=== PATIENT | female | born 1995 | race Two or more races ===

== ENCOUNTER 2022-03-09 11:49 | Emergency (ER) | payer OTHER ==
[~2022-03-09] VITALS: Ht 152.4 cm; Wt 114.8 kg
== END 2022-03-09 16:07 | disposition home or self-care (01) ==
LOC: ER 11:49
DX: K29.70 Gastritis, unspecified, without bleeding (principal); R53.83 Other fatigue; Z88.6 Allergy status to analgesic agent

== ENCOUNTER 2022-06-26 | Emergency (ER) | payer OTHER ==
[~2022-06-26] VITALS: Ht 152.4 cm; Wt 118.4 kg
[2022-06-26] MEDS ORDERED: BACTRIM DS TAB1 EACH PO (03:44)
== END 2022-06-26 03:50 | disposition home or self-care (01) ==
LOC: ER
DX: N39.0 Urinary tract infection, site not specified (principal); Z88.6 Allergy status to analgesic agent; R10.2 Pelvic and perineal pain

== ENCOUNTER 2023-05-06 02:12 | Emergency (ER) | payer OTHER ==
[~2023-05-06] VITALS: Ht 152.4 cm; Wt 108.0 kg
[~2023-05-06 02:12] MED LIST: BACTRIM DS TAB1 EACH PO
== END 2023-05-06 03:51 | disposition home or self-care (01) ==
LOC: ER 02:12
DX: M54.50 Low back pain, unspecified (principal); V49.60XA Unspecified car occupant injured in collision with unspecified motor vehicles in traffic accident, initial encounter; Y93.89 Activity, other specified; Y92.413 State road as the place of occurrence of the external cause; Z88.6 Allergy status to analgesic agent